=== PATIENT | female | born 1985 | race Caucasian/White ===

== ENCOUNTER → 2023-10-19 | Emergency (ER) | payer SELFPAY ==
[~2023-10-19] MED LIST: KETOROLAC 30 MG/ML INJ ONE
[2023-10-19 16:19] LABS: SARS-CoV-2 Antigen CONTROL BLUE LINE VIS/BG OK; SARS-CoV-2 Antigen Rapid Res Negative (Negative)
--- NOTE | 2023-10-19 16:57 | RAD REPORT ---
EXAM DESCRIPTION: RAD - Chest Pa And Lat (2 Views) - 10/19/2023 4:33 pm CLINICAL HISTORY: COUGH Chest pain. COMPARISON: No comparisons FINDINGS: The lungs are clear. The heart is normal in size. No displaced fractures. IMPRESSION: No acute or concerning finding suspected.
--- NOTE | 2023-10-19 17:09 | ER ---
Nurse's Notes [facility] Name: Robb Beckman Age: 38 yrs Sex: Female : 1985 Arrival Date: 10/19/2023 Time: 15:34 Bed 14 Private MD: Diagnosis: Acute upper respiratory infection, unspecified Presentation: 10/18 15:47 Chief complaint: Patient states: sore throat and cough x 2 weeks ago, pt states "today aa5 my lower back started hurting". Coronavirus screen: cough unrelated to allergies, sore throat. Ebola Screen: Patient denies travel to an Ebola-affected area in the 21 days before illness onset. Initial Sepsis Screen: Does the patient meet any 2 criteria? No. Patient's initial sepsis screen is negative. Does the patient have a suspected source of infection? No. Patient's initial sepsis screen is negative. Risk Assessment: Do you want to hurt yourself or someone else? Patient reports no desire to harm self or others. Onset of symptoms was October 2023. 15:47 Method Of Arrival: Ambulatory aa5 15:47 Acuity: SIXTO 3 aa5 [employer]: 15:48 LMP 10/17/2023, unknown aa5 Historical: - Allergies: 15:47 No Known Allergies; aa5 - PMHx: 15:47 Hypertensive disorder; aa5 - PSHx: 15:47 Cholecystectomy; aa5 - Immunization history:: Adult Immunizations unknown. - Social history:: Smoking status: Patient denies any tobacco usage or history of. Screenin:50 [facility] ED Fall Risk Assessment (Adult) History of falling in the last 3 months, me1 including since admission No falls in past 3 months (0 pts) Confusion or Disorientation No (0 pts) Intoxicated or Sedated No (0 pts) Impaired Gait No (0 pts) Mobility Assist Device Used No (0 pt) Altered Elimination No (0 pt) Score/Fall Risk Level 0 - 2 = Low Risk Maintained a safe environment, Provided non-skid footwear, Hourly rounding (assess needs \\T\\ fall precautionary measures) done. Abuse screen: Denies threats or abuse. Nutritional screening: No deficits noted. Tuberculosis screening: No symptoms or risk factors identified. Assessment: 15:50 General: Appears uncomfortable, well groomed, well developed, well nourished, Behavior me1 is calm, cooperative, appropriate for age, Reports. Pain: Complains of pain in back Pain does not radiate. Pain currently is 5 out of 10 on a pain scale. Quality of pain is described as aching, Pain began gradually, 4 hours ago. Is continuous. Neuro: Level of Consciousness is awake, alert, obeys commands, Oriented to person, place, time, situation, Appropriate for age. Cardiovascular: Capillary refill < 3 seconds Patient's skin is warm and dry. Respiratory: Reports cough that is non-productive, persistent Airway is patent Respiratory effort is even, unlabored, Respiratory pattern is regular, symmetrical, Breath sounds are clear bilaterally. EENT: Throat is reddened. Derm: Skin is pink, warm \\T\\ dry. Vital Signs: 15:47 BP 126 / 93; Pulse 90; Resp 16 S; Temp 98.4(TE); Pulse Ox 99% on R/A; Weight 49.9 kg aa5 (R); Height 4 ft. 11 in. (R); 17:00 BP 117 / 79; Pulse 76; Resp 16; Pulse Ox 98% on R/A; me1 17:17 BP 114 / 71; Pulse 81; Resp 16; Pulse Ox 98% on R/A; me1 15:47 Body Mass Index 22.22 (49.90 kg, 149.86 cm) aa5 ED Course: 15:38 Patient arrived in ED. im 15:38 Cyndi Beckman PA-C is PHCP. sb4 15:38 Ashley Evangelista MD is Attending Physician. sb4 15:40 Arm band placed on. aa5 15:48 Triage completed. aa5 15:50 Patient has correct armband on for positive identification. Bed in low position. Call me1 light in reach. Side rails up X 1. Provided Education on: POC. Verbalized understanding. . 15:50 No provider procedures requiring assistance completed. me1 15:51 Liliane Ronquillo, DEANA is Primary Nurse. me1 16:02 Strep Sent. me1 16:02 Flu Sent. me1 16:02 SARS RAPID Sent. me1 16:34 Chest Pa And Lat (2 Views) XRAY In Process Unspecified. EDMS 17:20 Patient did not have IV access during this emergency room visit. me1 Administered Medications: 16:02 Drug: Ketorolac IM 30 mg IM once Route: IM; Site: left deltoid; me1 17:09 Follow up: Response: No adverse reaction; Pain is decreased me1 Medication: 15:50 VIS not applicable for this client. me1 Outcome: 17:08 Discharge ordered by MD. [email or web address] 17:20 Discharged to home ambulatory, me1 17:20 Condition: stable 17:20 Discharge instructions given to patient, Instructed on discharge instructions, follow up and referral plans. medication usage, Demonstrated understanding of instructions, follow-up care, medications, Prescriptions given X 1, 17:20 Patient left the ED. me1 Signatures: Dispatcher [employer] EDNallely Richardson RN RN aa5 Cyndi Beckman, PA-C PA-C sb4 Kanchan Kumari Michelle RN RN me1 Corrections: (The following items were deleted from the chart) 17:09 15:47 Chief complaint: Patient states: sore throat and cough x 2 weeks ago, pt states me1 "today my lower back started hurting" aaSamia
--- NOTE | 2023-10-19 17:09 | EDPHYS ---
Physician Documentation [facility] Name: Robb Beckman Age: 38 yrs Sex: Female : 1985 Arrival Date: 10/19/2023 Time: 15:34 Bed 14 Private MD: ED Physician Ashley Evangelista HPI: 10/18 15:56 This 38 yrs old Female presents to ER via Ambulatory with complaints of Cough, Fever, sb4 Sore Throat, Low Back Pain. 15:57 Patient complains of nonproductive cough and sore throat x 2 weeks. She also reports sb4 subjective fever. She has been taking Mucinex and allergy medicine without significant relief in symptoms. She denies any sick contacts. Denies any chest pain, shortness of breath, nausea, vomiting, diarrhea, abdominal pain. She denies any chronic medical issues. SP[employer] AND MISSILE OPERATIONS: 15:48 LMP 10/17/2023, unknown aa5 Historical: - Allergies: 15:47 No Known Allergies; aa5 - PMHx: 15:47 Hypertensive disorder; aa5 - PSHx: 15:47 Cholecystectomy; aa5 - Immunization history:: Adult Immunizations unknown. - Social history:: Smoking status: Patient denies any tobacco usage or history of. ROS: 15:57 Cardiovascular: Negative for chest pain, palpitations, and edema, sb4 15:57 Constitutional: Positive for fever, 15:57 ENT: Positive for sore throat, 15:57 Respiratory: Positive for cough, 15:57 Back: Positive for pain at rest, 15:57 All other systems are negative, Exam: 15:57 Constitutional: This is a well developed, well nourished patient who is awake, alert, sb4 and in no acute distress. Head/Face: Normocephalic, atraumatic. Eyes: Extra-ocular motions intact. Periorbital areas with no swelling, redness, or edema. ENT: Mucous membranes moist. Cardiovascular: Regular rate and rhythm with a normal S1 and S2. Respiratory: Lungs have equal breath sounds bilaterally, clear to auscultation and percussion. No rales, rhonchi or wheezes noted. No increased work of breathing, no retractions or nasal flaring. Abdomen/GI: Soft, non-tender, no distension. Skin: Warm, dry with normal turgor. Normal color with no rashes, no lesions, and no evidence of cellulitis. MS/ Extremity: Pulses equal, no cyanosis. Neurovascular intact. Full, normal range of motion. Neuro: Awake and alert, GCS 15, oriented to person, place, time, and situation. Motor strength 5/5 in all extremities. Sensory grossly intact. 15:57 ENT: TM's: are normal, no evidence of bulging, no erythema, Posterior pharynx: is normal, no acute changes, Airway: normal, no evidence of obstruction, Vital Signs: 15:47 BP 126 / 93; Pulse 90; Resp 16 S; Temp 98.4(TE); Pulse Ox 99% on R/A; Weight 49.9 kg aa5 (R); Height 4 ft. 11 in. (R); 17:00 BP 117 / 79; Pulse 76; Resp 16; Pulse Ox 98% on R/A; me1 17:17 BP 114 / 71; Pulse 81; Resp 16; Pulse Ox 98% on R/A; me1 15:47 Body Mass Index 22.22 (49.90 kg, 149.86 cm) aa5 MDM: 15:41 Patient medically screened. sb4 17:08 Data reviewed: vital signs, nurses notes, lab test result(s), radiologic studies, and sb4 as a result, I will discharge patient. Counseling: I had a detailed discussion with the patient and/or guardian regarding the historical points, exam findings, and any diagnostic results supporting the discharge/admit diagnosis, lab results, radiology results, to return to the emergency department if symptoms worsen or persist or if there are any questions or concerns that arise at home. 10/18 15:50 Order name: SARS RAPID; Complete Time: 16:29 sb4 10/18 15:50 Order name: Flu; Complete Time: 16:32 sb4 10/18 15:50 Order name: Strep sb4 10/18 16:33 Order name: Throat Culture EDMS 10/18 15:50 Order name: Chest Pa And Lat (2 Views) XRAY; Complete Time: 16:59 sb4 Administered Medications: 16:02 Drug: Ketorolac IM 30 mg IM once Route: IM; Site: left deltoid; me1 17:09 Follow up: Response: No adverse reaction; Pain is decreased me1 Disposition: 19:11 Co-signature as Attending Physician, Ashley Evangelista MD I agree with the assessment and cp3 plan of care. Disposition Summary: 10/19/23 17:08 Discharge Ordered Notes: Location: Home sb4 Problem: an ongoing problem sb4 Symptoms: are unchanged sb4 Condition: Stable sb4 Diagnosis - Acute upper respiratory infection, unspecified sb4 Followup: sb4 - With: Emergency Department - When: As needed - Reason: Trouble breathing, Worsening of condition Discharge Instructions: - Discharge Summary Sheet sb4 - Viral Respiratory Infection, [id number] sb4 Forms: - Thank You Letter sb4 - Patient Portal Instructions sb4 - Leadership Thank You Letter sb4 Prescriptions: - Prednisone 20 mg Oral Tablet - take 1 tablet ORAL route every 12 hours for 5 days; 10 tablet; Refills: 0, sb4 Product Selection Permitted Signatures: Dispatcher [employer] Ashley Frazier MD MD cp3 Nallely Acosta, RN RN aa5 Cyndi Beckman, PAYelitzaC PA-C sb4 Liliane Ronquillo, RN RN me1
[2023-10-19 17:43] VITALS: BP 114/71; TEMP 98.4; O2SAT 98
== END ==
LOC: ER 15:34
DX: J06.9 Acute upper respiratory infection, unspecified (principal); Z11.52 Encounter for screening for COVID-19
CPT/HCPCS: 36415; 71046; 87070; 87081; 87804; 87811; 96372; 99284